=== PATIENT | male | born 1975 | race Caucasian/White ===

== ENCOUNTER → 2017-02-17 | Day surgery (SDC) | payer OTHER ==
[~2017-02-17] VITALS: Ht 172.7 cm; Wt 81.7 kg
[~2017-02-17] MED LIST: ALBU8.5H2 INHALATION; Sodium Chloride LOK Flush 10 mL Syringe IV PRN; fentaNYL-PF 50 mCg/mL 2 mL Inj IVPUSH PRN
[2017-02-17 12:35] VITALS: BP 122/81; PULSE 72; O2SAT 96
[2017-02-17] MEDS: 0.9% Sodium Chloride 1,000 ML IV SCH ×2 (13:37→13:43)
--- NOTE | 2017-02-17 13:47 | PCM.ENDCOL ---
Colonoscopy Date of Service: Feb 17, 2017 Physician Yash Reddy MD Pre Procedure Diagnosis: Prior history of nodule left to the appendix Post Procedure Dx & Findings: Polyp hemorrhoids Procedure Colonoscopy PROCEDURE IN DETAIL: Prep adequate Withdrawal time 8 minutes After unremarkable rectal examination the Olympus video colonoscope was inserted patient's anal canal and was advanced to cecum. Landmarks were identified including the ileocecal valve and appendiceal orifice. Scope was withdrawn systematically. Visualized colonic mucosa showed healthy shiny mucosa with normal healthy-appearing vasculature. In the ascending colon there was a 1 mm polyp which was removed completely using cold forceps. In the rectum retroflexion was done which showed hemorrhoids. Anal canal was inspected carefully on the way out and hemorrhoids noted. Impression Polyp 1 status post complete removal Hemorrhoids Recommendation Repeat colonoscopy in 5 years Presedation Assessment Risks and Benefits Informed consent was obtained from the patient after all risks and benefits including but not limited to drug reaction, infection, pain, bleeding, perforation, as well as alternatives were discussed. Patient monitoring Continuous pulse oximetry, cardiac monitoring, blood pressure monitoring, IV access, and oxygen at 2L per nasal cannula. Periprocedural Fentanyl: Fentanyl 75mcg Incrementally Midazolam: Midazolam 4mg Incrementally Complications There were no periprocedural complications identified. Post Procedure Plan Post Procedure Recommendations 1. Restrict activities today. 2. Resume normal activities in the morning. 3. Resume medications. 4. Patient informed of normal post procedure side effects as bloating, drowsiness, blood streaking in the stool. 5. average risk CRCS. If colon polyps come back as: -Hyperplastic- can repeat colonoscopy in 10 years -Tubular adenoma- repeat colonoscopy in 5 years -Tubulovillous/villous adenoma- repeat colonoscopy in 3 years -If any dysplasia- return to clinic as soon as possible 6. Please don't hesitate to call me with any questions. Yash Reddy MD Feb 17, 2017 13:47
[2017-02-17 13:53] VITALS: BP 110/67; PULSE 74; RESP 15; O2SAT 95
[2017-02-17 14:03] VITALS: BP 110/69; PULSE 79; RESP 16; O2SAT 98
--- NOTE | 2017-02-22 17:04 | PATH ---
SURGICAL PATHOLOGY Attending Physician:Yash Reddy M.D. CASE STATUS: Signed Out PATIENT NAME: ANOOP REID PID: [id number] : 1975 DATE COLLECTED:02/17/2017 00:00 SPECIMEN: Colon, Polyp CLINICAL HISTORY: LIVER MASS, COLON POLYP 1). 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 Negative for epithelial dysplasia or malignancy. ICD10: K63.5 NOTE: As part of routine quality assistant, Dr. Diallo has reviewed this case and agrees with the above interpretation. GROSS DESCRIPTION: The specimen is received in one formalin filled container labeled with the patient's name, sublabeled "ascending colon polyp" and consists of a 0.2 x 0.2 x 0.2 CM portion of tissue which is entirely submitted in cassette. 02/18/2017DC MICRO DESCRIPTION: Sections are of colonic mucosa with expansion of the lamina propria by a bland spindle cell proliferation which alters the crypt architecture. There is no significant nuclear atypia or mitotic activity. Necrosis is absent. To further classify the spindle cell proliferation, a limited panel of immunohistochemical stains is performed (each with an appropriate positive control). The spindle cells are strongly and diffusely positive for S100 protein expression and are negative for DOG1 and desmin protein expression. Overall the morphology and immunophenotype are most consistent with a Schwann cell hamartoma. There is no evidence of a gastrointestinal stromal tumor. * This test was developed and its performance characteristics determined by [facility]. It has not been cleared or approved by the U.[place]. Food and Drug Administration. The FDA has determined that such clearance or approval is not necessary. This test is used for clinical purposes. It should not be regarded as investigational or for research. ICD-9 CODES: CPT CODES: 1: 19644, 03440, 28629 Electronically Signed Out Sandro Somers MD, Ph.D. [facility] [address], [place] [address] Technical component performed at [facility], [address], [place], [address]
== END | disposition home or self-care (01) ==
LOC: END 00:56
PROVIDERS: ATTEND Internal Medicine
DX: K38.8 Other specified diseases of appendix (principal); D12.2 Benign neoplasm of ascending colon; K64.8 Other hemorrhoids; R16.0 Hepatomegaly, not elsewhere classified
CPT/HCPCS: 45380; G0500; J2250; J3010; J7030